=== PATIENT | female | born 1955 | race African-American/Black ===

== ENCOUNTER 2017-09-04 11:33 | Emergency (ER) | payer BC, OTHER ==
[2017-09-04] MEDS ORDERED: Ketorolac Tromethamine 30 MG/ML VIAL ONE (12:31)
== END 2017-09-04 12:57 | disposition home or self-care (01) ==
LOC: ERS 11:33
DX: M54.5 Low back pain (principal); I10 Essential (primary) hypertension; E78.00 Pure hypercholesterolemia, unspecified; E11.9 Type 2 diabetes mellitus without complications; F41.9 Anxiety disorder, unspecified; F32.9 Major depressive disorder, single episode, unspecified; Z79.84 Long term (current) use of oral hypoglycemic drugs; Z79.1 Long term (current) use of non-steroidal anti-inflammatories (NSAID); Z79.899 Other long term (current) drug therapy
CPT/HCPCS: 96372; 99283; J1885

== ENCOUNTER 2017-10-04 12:45 | Outpatient (CLI) | payer BC ==
--- NOTE | 2017-10-04 15:06 | RAD ---
LUMBAR SPINE THREE VIEWS: HISTORY: A 62-year-old female with a history of lumbar stenosis with low back pain and pain going down both le gs for many years. TECHNIQUE: Standing neutral flexion and extension views of the lumbar spine are performed. FINDINGS: There is extensive multilevel disk osteophytosis with multilevel disk space narrowing, including some prominent posterior osteophytes at L2-L3. No significant abnormal translation between flexion and e xtension. No acute compression fracture. IMPRESSION: 1. Severe spondylosis. 2. No abnormal translation between flexion and extension. POS: HORACIO
--- NOTE | 2017-10-04 15:23 | MRI ---
MRI LUMBAR SPINE WITHOUT CONTRAST: HISTORY: Lumbar pain with radiation down both legs x10 years. COMPARISON: 04/12/2003 TECHNIQUE: An MRI of the lumbar spine is performed without intravenous Gadolinium administration. Multisequenti al, multiplanar imaging is performed. FINDINGS: There is appropriate T1 marrow signal intensity of the lumbar vertebrae. Vertebral body height is ma intained. No fracture. There are combinations of type 1 and type 2 modic changes at L2-L3 and at L5 -S1. No significant STIR hyperintensity to suggest edema or ligamentous injury. Symmetric signal intensity of the psoas muscles. Appropriate signal intensity of the visualized abner d organs. The conus medullaris terminates at the lower third of L1. T12-L1: No significant central canal stenosis or neural foraminal narrowing. L1-L2: Adequate disk hydration. No significant central canal stenosis. The neural foramina are pat ent. Minimal posterior element hypertrophy. L2-L3: Vacuum disk phenomenon. Left and right paracentral disk bulges. Narrowing of the left subar ticular zone with partial obscuration of the traversing left L3 nerve root. Overall, there is mild c entral canal stenosis. Mild ligamentum flavum thickening and facet hypertrophy are present. Mild ri ght and moderate left foraminal narrowing. L3-L4: Desiccation with mild loss of disk space height. Generalized disk bulge, ligamentum flavum t hickening, and facet hypertrophy result in moderate to severe central canal stenosis. Moderate right and moderate to severe left foraminal narrowing. L4-L5: Desiccation with mild to moderate loss of disk space height. Generalized disk bulge, ligamen yolanda flavum thickening, and facet hypertrophy result in severe central canal stenosis. Moderate bilat eral foraminal narrowing. L5-S1: Desiccation with moderate loss of disk space height. Generalized disk bulge, ligamentum flav um thickening, and facet hypertrophy result in mild central canal stenosis. Severe right and moderat e to severe left foraminal narrowing. IMPRESSION: 1. Degenerative changes of the lumbar spine, as above. 2. Type 1 modic changes involving multiple levels, as described above. POS: OFF
== END 2017-10-04 12:46 | disposition home or self-care (01) ==
LOC: TBSIIMAG 12:45
PROVIDERS: ATTEND Neurological Surgery
DX: M48.062 Spinal stenosis, lumbar region with neurogenic claudication (principal); M47.896 Other spondylosis, lumbar region
CPT/HCPCS: 72100; 72148

== ENCOUNTER 2017-11-15 10:53 | Outpatient (CLI) | payer BC | END 2017-11-15 10:54 | disposition home or self-care (01) | LOC: BICMAMMO 10:53 | PROVIDERS: ATTEND Family Medicine | DX: Z12.31 Encounter for screening mammogram for malignant neoplasm of breast (principal); N64.89 Other specified disorders of breast; Z80.3 Family history of malignant neoplasm of breast | CPT/HCPCS: 77063; 77067 ==

== ENCOUNTER 2020-03-20 09:04 | Outpatient (CLI) | payer BC ==
--- NOTE | 2020-03-20 11:45 | MMO ---
Bilateral MAMMO Bilat Screen [facility]. CLINICAL HISTORY: Patient is 65 years old and is seen for screening. The patient has the following family history of breast cancer: maternal aunt, malignant (generic) and maternal grandmother, malignant (generic). The patient has no personal history of cancer. The patient has a history of bilateral Breast reduction more than 10 years ago. VIEWS: The views performed were: bilateral craniocaudal with tomosynthesis and bilateral mediolateral oblique with tomosynthesis. FILMS COMPARED: The present examination has been compared to prior imaging studies performed at [facility] on 02/15/2019 and 02/16/2019, and at [facility] on 07/30/2016 and 11/15/2017. This study has been interpreted with the assistance of computer-aided detection. MAMMOGRAM FINDINGS: There are scattered fibroglandular densities. Finding 1: There are stable benign appearing calcifications seen in both breasts. Finding 2: There are stable benign appearing densities seen in both breasts. There are no suspicious masses, suspicious calcifications, or new areas of architectural distortion. IMPRESSION: THERE IS NO MAMMOGRAPHIC EVIDENCE OF MALIGNANCY. A ROUTINE FOLLOW-UP MAMMOGRAM IN 1 YEAR IS RECOMMENDED. THE RESULTS OF THIS EXAM WERE SENT TO THE PATIENT. ACR BI-RADS Category 2 - Benign finding MAMMOGRAPHY NOTE: 1. A negative mammogram report should not delay a biopsy if a dominant of clinically suspicious mass is present. 2. Approximately 10% to 15% of breast cancers are not detected by mammography. 3. Adenosis and dense breasts may obscure an underlying neoplasm. Reported by: SARA ZHANG MD Electonically Signed: [id number]
== END 2020-03-20 09:05 | disposition home or self-care (01) ==
LOC: BICMAMMO 09:04
PROVIDERS: ATTEND Family Medicine
DX: Z12.31 Encounter for screening mammogram for malignant neoplasm of breast (principal); Z80.3 Family history of malignant neoplasm of breast; Z98.890 Other specified postprocedural states
CPT/HCPCS: 77063; 77067

== ENCOUNTER 2020-06-24 10:57 | Outpatient (CLI) | payer BC ==
--- NOTE | 2020-06-24 11:20 | RAD ---
LEFT KNEE 3 VIEWS: HISTORY: Left knee pain and swelling. FINDINGS/IMPRESSION: There are degenerative changes involving the medial tibial femoral and patellofemoral compartments wi th joint space narrowing and osteophyte formation. No fracture, dislocation, or bony destruction is seen. POS: AH
== END 2020-06-24 10:58 | disposition home or self-care (01) ==
LOC: SCSRAD 10:57
PROVIDERS: ATTEND Family Medicine
DX: M25.562 Pain in left knee (principal); M17.12 Unilateral primary osteoarthritis, left knee; M25.762 Osteophyte, left knee

== ENCOUNTER 2021-04-06 15:06 | Outpatient (CLI) | payer BC, MEDICARE | END 2021-04-06 15:07 | disposition home or self-care (01) | LOC: BICMAMMO 15:06 | PROVIDERS: ATTEND Family Medicine | DX: Z12.31 Encounter for screening mammogram for malignant neoplasm of breast (principal); Z98.890 Other specified postprocedural states | CPT/HCPCS: 77063; 77067 ==

== ENCOUNTER 2022-04-08 09:02 | Outpatient (CLI) | payer MEDICARE | END 2022-04-08 09:03 | disposition home or self-care (01) | LOC: BICMAMMO 09:02 | PROVIDERS: ATTEND Family Medicine | DX: Z12.31 Encounter for screening mammogram for malignant neoplasm of breast (principal); Z80.3 Family history of malignant neoplasm of breast; Z98.82 Breast implant status | CPT/HCPCS: 77063; 77067 ==

== ENCOUNTER 2023-05-09 12:50 | Outpatient (CLI) | payer MEDICARE | END 2023-05-09 12:51 | disposition home or self-care (01) | LOC: BICMAMMO 12:50 | PROVIDERS: ATTEND Family Medicine | DX: Z12.31 Encounter for screening mammogram for malignant neoplasm of breast (principal); Z80.3 Family history of malignant neoplasm of breast; Z98.890 Other specified postprocedural states | CPT/HCPCS: 77063; 77067 ==

== ENCOUNTER 2024-06-14 08:36 | Outpatient (CLI) | payer MEDICARE | END 2024-06-14 08:37 | disposition home or self-care (01) | LOC: BICMAMMO 08:36 | PROVIDERS: ATTEND Family Medicine | DX: Z12.31 Encounter for screening mammogram for malignant neoplasm of breast (principal); Z80.3 Family history of malignant neoplasm of breast | CPT/HCPCS: 77063; 77067 ==